=== PATIENT | male | born 1965 | race Caucasian/White ===

== ENCOUNTER 2021-10-10 13:52 | Outpatient (REF) | payer OTHER, SELFPAY ==
[2021-10-10 19:58] LABS: MANUAL DIFF FLAG NO
[2021-10-10 20:01] LABS: Basophils Absolute Auto 0.1 X10*3/uL (0.0-0.2); Basophils Percent Auto 1.1 % (0-2); Eosinophils Absolute Auto 0.3 X10*3/uL (0.0-0.4); Eosinophils Percent Auto 4.5 % (0-4); Hematocrit 42.7 % (42.0-52.0); Hemoglobin 14.7 g/dl (14.0-18.0); Imm Gran Abs Auto 0.02 X10*3/uL (0.00-0.03); Imm Gran Pct Auto 0.3 % (0.0-0.4); Lymphocytes Absolute Auto 1.4 X10*3/uL (1.2-4.9); Lymphocytes Percent Auto 21.7 % (20-40); Mean Corpuscular HGB Conc 34.4 g/dl (31.0-36.0); Mean Corpuscular Hemoglobin 31.3 pg (27.0-33.0); Mean Platelet Volume 11.2 fL (9.4-12.4); Monocytes Absolute Auto 0.9 X10*3/uL (0.1-1.2); Monocytes Percent Auto 13.6 % (2-11); Neutrophils Absolute Auto 3.8 x10*3/uL (2.0-8.3); Neutrophils Percent Auto 58.8 % (45-73); Platelet Count 207 X10*3/uL (160-400); Red Blood Count 4.69 X10*6/uL (4.60-5.80); Red Cell Distribution Width 13.2 % (11.0-16.0); White Blood Count 6.5 X10*3/uL (4.8-10.8)
[2021-10-10 20:24] LABS: Alanine Aminotransferase 20 U/L (0-40); Albumin Level 4.4 g/dL (3.5-5.0); Alkaline Phosphatase 58 U/L (39-117); Anion Gap 10 (12-20); Aspartate Amino Transferase 19 U/L (5-37); Bilirubin Total 0.4 mg/dL (0.0-1.0); Blood Urea Nitrogen 24 mg/dL (9-16); Calcium 9.2 mg/dL (8.4-10.2); Carbon Dioxide 28 mmol/L (22-29); Chloride 106 mmol/L (96-108); Cholesterol 213 mg/dL; Estimated Glomerular Filt Rate > 60; Glucose Random 97 mg/dL (60-115); HDL Cholesterol 87 mg/dL; LDL Cholesterol Calculated 111 mg/dl; Potassium 4.2 mmol/L (3.3-5.1); Sodium 140 mmol/L (135-145); Triglycerides 77 mg/dL
[2021-10-10 20:41] LABS: Prostate Specific Antigen 2.78 ng/mL (<0.05-4.0)
== END 2021-10-10 13:53 | disposition home or self-care (01) ==
LOC: HO.MANLDS 13:52
PROVIDERS: PCP Internal Medicine; Visit Provider Internal Medicine
DX: Z12.5 Encounter for screening for malignant neoplasm of prostate (principal); I45.6 Pre-excitation syndrome; N40.1 Benign prostatic hyperplasia with lower urinary tract symptoms
CPT/HCPCS: 36415; 80053; 80061; 84153; 85025

== ENCOUNTER 2024-04-11 06:53 | Outpatient (REF) | payer OTHER, SELFPAY ==
[2024-04-11 07:06] LABS: MANUAL DIFF FLAG NO
[2024-04-11 07:25] LABS: Basophils Percent Auto 0.8 % (0-2); Eosinophils Absolute Auto 0.4 X10*3/uL (0.0-0.4); Eosinophils Percent Auto 7.5 % (0-4); Hematocrit 48.5 % (42.0-52.0); Hemoglobin 16.5 g/dl (14.0-18.0); Imm Gran Abs Auto 0.01 X10*3/uL (0.00-0.03); Imm Gran Pct Auto 0.2 % (0.0-0.4); Lymphocytes Absolute Auto 1.4 X10*3/uL (1.2-4.9); Lymphocytes Percent Auto 27.6 % (20-40); Mean Corpuscular Hemoglobin 30.8 pg (27.0-33.0); Mean Corpuscular Volume 90.7 fL (80.0-98.0); Mean Platelet Volume 10.7 fL (9.4-12.4); Monocytes Absolute Auto 0.8 X10*3/uL (0.1-1.2); Monocytes Percent Auto 14.9 % (2-11); Neutrophils Absolute Auto 2.5 x10*3/uL (2.0-8.3); Platelet Count 203 X10*3/uL (160-400); Red Blood Count 5.35 X10*6/uL (4.60-5.80); Red Cell Distribution Width 13.1 % (11.0-16.0); White Blood Count 5.2 X10*3/uL (4.8-10.8)
[2024-04-11 07:35] LABS: Estimated Average Glucose 103 mg/dL; Hemoglobin A1C 143.2963 umol/L; Hemoglobin A1c % 5.2 % (<6.0); Total Hemoglobin (HGBA1C) 4310.8552 umol/L
[2024-04-11 07:45] LABS: Alanine Aminotransferase 20 U/L (0-40); Albumin Level 4.4 g/dL (3.5-5.0); Alkaline Phosphatase 69 U/L (39-117); Anion Gap 11 (12-20); Aspartate Amino Transferase 19 U/L (5-37); Bilirubin Total 0.5 mg/dL (0.0-1.0); Blood Urea Nitrogen 14 mg/dL (9-16); Calcium 9.4 mg/dL (8.4-10.2); Carbon Dioxide 29 mmol/L (22-29); Chloride 105 mmol/L (96-108); Cholesterol 230 mg/dL (<200); Estimated Glomerular Filt Rate > 60; Glucose Random 100 mg/dL (60-115); HDL Cholesterol 74 mg/dL (>40); LDL Cholesterol Calculated 125 mg/dL (<100); Potassium 4.4 mmol/L (3.3-5.1); Sodium 141 mmol/L (135-145); Total Protein 7.3 g/dL (6.5-8.0); Triglycerides 159 mg/dL (<150)
[2024-04-11 07:59] LABS: Prostate Specific Antigen 5.43 ng/mL (<0.05-4.0)
== END 2024-04-11 06:54 | disposition home or self-care (01) ==
LOC: HO.LAB 06:53
PROVIDERS: PCP Internal Medicine; Visit Provider Physician Assistant
DX: Z00.00 Encounter for general adult medical examination without abnormal findings (principal); Z13.1 Encounter for screening for diabetes mellitus; Z12.5 Encounter for screening for malignant neoplasm of prostate
CPT/HCPCS: 36415; 80053; 80061; 83036; 84153; 85025

== ENCOUNTER 2024-04-27 06:19 | Outpatient (REF) | payer OTHER, SELFPAY ==
[2024-04-27 06:38] LABS: MANUAL DIFF FLAG NO
[2024-04-27 07:27] LABS: Basophils Absolute Auto 0.1 X10*3/uL (0.0-0.2); Basophils Percent Auto 0.9 % (0-2); Eosinophils Absolute Auto 0.5 X10*3/uL (0.0-0.4); Eosinophils Percent Auto 8.2 % (0-4); Hemoglobin 15.6 g/dl (14.0-18.0); Imm Gran Abs Auto 0.01 X10*3/uL (0.00-0.03); Imm Gran Pct Auto 0.2 % (0.0-0.4); Lymphocytes Absolute Auto 1.4 X10*3/uL (1.2-4.9); Lymphocytes Percent Auto 25.2 % (20-40); Mean Corpuscular HGB Conc 34.7 g/dl (31.0-36.0); Mean Corpuscular Hemoglobin 30.7 pg (27.0-33.0); Mean Corpuscular Volume 88.6 fL (80.0-98.0); Mean Platelet Volume 10.7 fL (9.4-12.4); Monocytes Absolute Auto 0.8 X10*3/uL (0.1-1.2); Monocytes Percent Auto 15.1 % (2-11); Neutrophils Absolute Auto 2.8 x10*3/uL (2.0-8.3); Neutrophils Percent Auto 50.4 % (45-73); Platelet Count 209 X10*3/uL (160-400); Red Blood Count 5.08 X10*6/uL (4.60-5.80); White Blood Count 5.5 X10*3/uL (4.8-10.8)
[2024-04-27 07:41] LABS: Alanine Aminotransferase 16 U/L (0-40); Albumin Level 4.1 g/dL (3.5-5.0); Alkaline Phosphatase 68 U/L (39-117); Anion Gap 13 (12-20); Aspartate Amino Transferase 20 U/L (5-37); Bilirubin Total 0.5 mg/dL (0.0-1.0); Blood Urea Nitrogen 19 mg/dL (9-16); C Reactive Protein 0.15 mg/dL (< or = 0.50); Calcium 9.3 mg/dL (8.4-10.2); Carbon Dioxide 27 mmol/L (22-29); Chloride 106 mmol/L (96-108); Estimated Glomerular Filt Rate > 60; Glucose Random 104 mg/dL (60-115); Iron 78 mcg/dL (45-160); Lipase 29 U/L (8-78); Magnesium 2.1 mg/dL (1.6-2.6); Percent Iron Saturation 26 % (15-50); Potassium 4.4 mmol/L (3.3-5.1); Sodium 142 mmol/L (135-145); Total Iron Binding Capacity 300 mcg/dL (228-428); Total Protein 6.9 g/dL (6.5-8.0); Unsaturated Iron Binding 222 ug/dL
[2024-04-27 07:53] LABS: Amylase 77 U/L (28-100)
[2024-04-27 08:07] LABS: Ferritin 181 ng/mL (20-250); Free T4 (Free Thyroxine) 0.84 ng/dL (0.71-1.85); Thyroid Stimulating Hormone 1.49 uIU/mL (0.32-4.0)
[2024-04-27 08:19] LABS: Folate 9.5 ng/mL (> or = 4.0); Vitamin B12 522 pg/mL (200-900)
[2024-04-27 10:00] LABS: Erythrocyte Sedimentation Rate 1 MM/HR (0-15)
[2024-05-01 13:34] LABS: Zinc 77 mcg/dL (60-130)
--- OUTSIDE RECORDS SUMMARY | 2024-05-02 22:51 | XMS_ITS | Continuity of Care Document ---
Author Organization [facility] Address [address] [place] [address] Assessment No assessment recorded. Plan of Treatment Reminders Order Date Submit Date Provider Last Modified By Organization Details Last Modified Time Details Appointments ANNUAL EXAM 2024 04:00P M MAYCOL JONES Not available Not available Not available Lab CMP, serum or plasma 2023 [facility], [address] [place] [address], [id number], 04/12/2024 11:55:33 CBC w/ auto diff 2023 [facility], [address] [place] [address], [id number], 04/28/2024 11:33:32 lipid panel, blood 2023 [facility], [address] [place] [address], [id number], 02/25/2024 16:00:35 PSA, serum or plasma 2023 [facility], [address] [place] [address], [id number], 02/25/2024 16:00:35 hemoglobi n A1c, QN, blood 2023 [facility], [address] [place] [address], [id number], 02/25/2024 16:00:35 Referral None recorded. Procedures None recorded. Surgeries None recorded. Imaging None recorded. Medication Orders None recorded. Patient TargetsNo targets recorded. Patient InstructionsNo instructions recorded. Reason for Referral None Reported. Problems Name Problem SNOMED Code Status Onset Date Resolution Date Notes Provider Name and Address Organization Details Recorded Time Nahun inson-Whit e pattern 58834905 Active 2021 Not Available [facility] 3 11:44:39 Benign prostatic hyperplasi a with outflow obstructio n 772123310 Active 2021 Not Available [facility] 3 11:44:39 Bleeding internal hemorrhoid s 76522314 Active 2021 Not Available [facility] 3 11:44:39 Pain of bilateral knee joints 6228111338240 04 Active 2021 Not Available [facility] 3 11:44:39 Bilateral plantar fasciitis 3629204428326 9108 Active 2021 Not Available [facility] 3 11:44:39 Pain in right heel 7811990818085 105 Active 2021 Not Available [facility] 3 11:44:39 Supraventr icular tachycardi a 0752875 Active 2022 Not Available [facility] 3 11:44:39 Dyspnea 076077697 Active 2022 Not Available [facility] 3 11:44:39 Lipoma of skin 408357769 Active 2022 Not Available [facility] 3 11:44:39 Notes:failed ablation 2017 Problem Notes None recorded. Procedures Surgical History Date Name Laterality Status Provider Name and Address Organization Details Recorded Time 02/11/20 [facility] 09/[facility] 12:11:11 [facility]lect[facility] 09/23/2021 12:11:44 [facility] 09/23/2021 12:11:57 excision of lipoma completed [facility] 09/23/2021 12:12:10 Imaging Results None recorded. Procedure Notes None recorded. Medical Equipment None Reported. Allergies No known drug allergies Medications Name Sig Start Date Stop Date Status Note LastModified by Organization Details LastModified Time amoxicillin 500 mg capsule TAKE 1 CAPSULE BY MOUTH THREE TIMES A DAY 07/02 completed Not Available Not Available Not Available potassium chloride ER 10 mEq capsule,ext ended release TAKE 1 CAPSULE BY MOUTH DAILY FOR 5 DAYS ONLY WHILE TAKING FUROSEMID E 07/02 completed Not Available Not Available Not Available amiodarone 200 mg tablet TAKE 2 TABLETS BY MOUTH 2 TIMES A DAY FOR 6 DAYS, THEN TAKE 1 TABLET TWICE A DAY FOR 30 DAYS 07/02 completed Not Available Not Available Not Available hydrocodone 5 mg-acetamin ophen 325 mg tablet TAKE 1 TABLET BY MOUTH EVERY 6 HOURS NEEDED FOR PAIN 07/02 completed Not Available Not Available Not Available amoxicillin 500 mg tablet TAKE 4 TABLET BY MOUTH DIRECTED 1 HOUR PRIOR TO DENTAL APPOINTME NT 02/24 completed Not Available Not Available Not Available hydrocortis one 2.5 % topical cream with perineal applicator APPLY SPARINGLY TO AFFECTED AREA 2 TO 4 TIMES A DAY 07/02 completed Not Available Not Available Not Available tamsulosin 0.4 mg capsule TAKE 1 CAPSULE BY MOUTH EVERY DAY 07/02 completed Not Available Not Available Not Available furosemide 20 mg tablet TAKE 1 TABLET BY MOUTH TWICE A DAY FOR 5 DAYS 07/02 completed Not Available Not Available Not Available ibuprofen 600 mg tablet TAKE 1 TABLET BY MOUTH FOUR TIMES A DAY NEEDED FOR PAIN 07/02 completed Not Available Not Available Not Available albuterol sulfate HFA 90 mcg/actuati on aerosol inhaler INHALE 2 PUFFS EVERY 4 HOURS NEEDED FOR WHEEZING/ SHORTNESS OF BREATH 02/24 completed Not Available Not Available Not Available chlorhexidi ne gluconate 0.12 % mouthwash RINSE GENTLY WITH 1 CAPFUL TWICE A DAY THEN SPIT OUT 07/02 completed Not Available Not Available Not Available aspirin 1 tablet QD (81 mg) active Not Available Not Available No t Available Vitals Date Recorded Body height Body mass index (BMI) Body weight Heart rate Oxygen saturation Oxygen saturation in Arterial blood by Pulse oximetry Systolic blood pressure Diastolic blood pressure Provider Name and Address Organization Details Last Updated DateTime 4 177.8 cm 26.2 kg/m2 18674.9 7 g 65 /min 97 % 97 % 122 mm[Hg] 78 mm[Hg] Namita Zurita [facility] 15:46:33 Social History Question Answer Notes LastModified by Organizat ion Details LastModified Time Tobacco Smoking Status Former Smoker Angelica Soto robert [facility] 09/23/2021 12:12:22 What Was The Date Of Your Most Recent Tobacco Screening? 02/25/2024 [email or web address] Information not available 02/25/2024 Do You Or Have You Ever Used Any Other Forms Of Tobacco Or Nicotine? No [email or web address] Information not available 07/02/2022 Sex: Unknown Functional Status None recorded. Mental Status None recorded. Family History Nothing Reported. Medical History No medical history recorded. Immunizations Vaccine Type Date Status Provider Name and Address Organization Details Recorded Time COVID-19 vaccine, vector-nr, rS-Ad26, PF, 0.5 mL 02/14/2021 completed Not Available [facility] 09/22/2022 15:46:47 Tdap 10/22/2017 completed Delonte JONES [address] [place] [address], [phone], [facility] [place] [facility] 02/25/2024 15:55:19 Past Encounters Encounter ID Performer Location Encounter Start Date Encounter Closed Date Diagnosis/Indication Diagnosis SNOMED-CT Code Diagnosis ICD10 Code [id number] MAYCOL JONES [facility] [address] [place] [address],[place] [address] 02/25/2024 15:42:07 02/25/2024 16:07:47 Active or passive immunization 469222605 Z23 Adult heal th examination 817224393 Z00.00 Depression screening 171 452809 Z13.31 Health Concerns Section Related Observation LastModified by Organization Detai ls LastModified Time None Recorded Concern Status LastModified by Organization Details LastModified Time None Recorded Payers Encounter Date Sequence Insurance Name Policy Number Policy Briceno Covered Member ID Briceno Member ID Guarantor Name 02/25/2024 1 [employer] - [facility] PPO (PPO) [id number] Erich Regan [id number] Erich Regan Notes Date Note Type Note Provider Name and Address Organization Details Recorded Time 02/25/2024 text/html Annual WellnessReported bypatient.Diet and Nutrition:healthy diet; discussed vitamin and supplement use; discussed portion control; discussed maintaining calcium balance; discussed diet improvement Fracture Risk:no history of fractures; no recent explained fracture; no sudden unexplained fractures; no previous musculoskeletal injuries Physical Activity:exercises on a regular basis; recent increase in physical activity; good physical condition; discussed weightbearing activities; discussed exercise habits Additional Lifestyle Factors:no tobacco use; drinks alcohol (mild-moderate) Depression Risk:never feels sad, empty, or tearful; no loss of interest in activities; no significant changes in weight; no sleep disturbances or insomnia; no agitation; no loss of energy; no feelings of worthlessness or guilt; no thoughts of suicide; no history of depression; no history of mood disorders Hearing:no loss of hearing Vision:no vision problemsNotes:recent dentist appt last week > goes 4 times a yearhas fillings scheduled got CT scan for ongoing chest pain MAYCOL JONES [address] [place] [address], [phone], [facility] 02/25/2024 16:04:15
--- OUTSIDE RECORDS SUMMARY | 2024-05-02 22:51 | XMS_ITS | Data Portability ---
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) [place] MODERATE MUST MEET 2 OUT OF 3 ELEMENTS: PROBLEMS, DATA OR RISK ELEMENT 1: PROBLEMS ADDRESSED 1 OR MORE CHRONIC ILLNESS WITH EXACERBATION OR 2 OR MORE STABLE CHRONIC ILLNESSES OR 1 UNDIAGNOSED NEW PROBLEM OR 1 ACUTE ILLNESS W/SYMPTOMS OR 1 ACUTE COMPLICATED INJURY ELEMENT 2: DATA MUST MEET 1 OF 3 CATEGORIES CATEGORY 1: REVIEW OF PRIOR EXTERNAL NOTES, REVIEW OF RESULTS, ORDERING OF EACH TEST, ASSESSMENT REQUIRING INDEPENDENT HISTORIAN OR CATEGORY 2: INDEPENDENT INTERPRETATION OF TESTS BY ANOTHER PHYSICIAN OR SPECIALIST OR CATEGORY 3: DISCUSSION OF MGT OR TEST INTERPRETATION W/EXTERNAL PHYSICIAN OR SPECIALIST ELEMENT 3: RISK RISK OF COMPLICATIONS AND/OR MORBIDITY OR MORTALITY OF PATIENT MANAGEMENT PROVIDER MUST THOROUGHLY DOCUMENT EACH ELEMENT THAT IS COVERED Not available 09/24/2021 16:26:20 11/10/2021 11/10/2021 [id number] [place] [id number] (POURING CRANE OPERATOR) MDM MODERATE MUST MEET 2 OUT OF 3 ELEMENTS: PROBLEMS, DATA OR RISK ELEMENT 1: PROBLEMS ADDRESSED 1 OR MORE CHRONIC ILLNESS WITH EXACERBATION OR 2 OR MORE STABLE CHRONIC ILLNESSES OR 1 UNDIAGNOSED NEW PROBLEM OR 1 ACUTE ILLNESS W/SYMPTOMS OR 1 ACUTE COMPLICATED INJURY ELEMENT 2: DATA MUST MEET 1 OF 3 CATEGORIES CATEGORY 1: REVIEW OF PRIOR EXTERNAL NOTES, REVIEW OF RESULTS, ORDERING OF EACH TEST, ASSESSMENT REQUIRING INDEPENDENT HISTORIAN OR CATEGORY 2: INDEPENDENT INTERPRETATION OF TESTS BY ANOTHER PHYSICIAN OR SPECIALIST OR CATEGORY 3: DISCUSSION OF MGT OR TEST INTERPRETATION W/EXTERNAL PHYSICIAN OR SPECIALIST ELEMENT 3: RISK RISK OF COMPLICATIONS AND/OR MORBIDITY OR MORTALITY OF PATIENT MANAGEMENT PROVIDER MUST THOROUGHLY DOCUMENT EACH ELEMENT THAT IS COVERED Not available 11/10/2021 16:37:05 Plan of Treatment Reminders Order Date Submit Date Provider Last Modified By Organization Details Last Modified Time Details Appointments ANNUAL EXAM 2024 04:00P M MAYCOL JONES Not available Not available Not available Lab CMP, serum or plasma 2021 SELENE Not available 10/13/2021 11:21:36 CBC w/ auto diff 2021 SELENE Not available 10/13/2021 11:21:36 lipid panel, serum 2021 SELENE Not available 10/13/2021 11:21:36 PSA, serum or plasma 2021 [email or web address] Not available 09/24/2021 16:48:43 CMP, serum or plasma 2023 [facility], [address] [place] [address], [id number], 04/12/2024 11:55:33 CBC w/ auto diff 2023 024 [facility], [address] [place] [address], [address], 04/28/2024 11:33:32 lipid panel, blood 2023 024 [facility], [address] [place] [address], [address], 02/25/2024 16:00:35 PSA, serum or plasma 2023 024 [facility], [address] [place] [address], [address], 02/25/2024 16:00:35 hemoglobi n A1c, QN, blood 2023 024 [facility], [address] [place] [address], [address], 02/25/2024 16:00:35 Referral cardiolog ist referral 2021 022 [email or web address] 10 Erich Llanos MD, [address] [place], [address], 11/17/2021 11:54:17 general surgeon referral 2022 023 [email or web address] Rasheeda Myles MD, [address] [facility], [place], [address], 08/07/2022 10:46:52 Procedures None recorded. Surgeries None recorded. Imaging XR, knee, 3 view 2021 022 SELENE Not available 09/30/2021 15:12:50 XR, chest, 2 view 2022 023 [facility], [address] [place], [address], 08/07/2022 10:46:52 Medication Orders hydrocort isone 2.5 % topical cream with perineal applicato r 2021 022 [email or web address] [id number], [address] [place], [address], 07/02/2022 10:38:51 tamsulosi n 0.4 mg capsule 2021 022 [email or web address] [id number], [address] [place], [address], 07/02/2022 10:38:49 Patient TargetsNo targets recorded. 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 [email or web address] [facility] [address] [place] [address] Dr, [place], [id number], 11/10/2021 16:27:12 08/06/19 23 08/05/2022 XR, chest , 2 view No observ ation record ed. [email or web address] [facility] [address] [place], [id number], 08/07/2022 09:49:26 Result Notes None recorded. Problems Name Problem SNOMED Code Status Onset Date Resolution Date Notes Provider Name and Address Organization Details Recorded Time Nahun inson-Whit e pattern 69246597 Active 2021 Not Available [facility] 3 11:44:39 Benign prostatic hyperplasi a with outflow obstructio n 520030451 Active 2021 Not Available [facility] 3 11:44:39 Bleeding internal hemorrhoid s 35549818 Active 2021 Not Available [facility] 3 11:44:39 Pain of bilateral knee joints 0714720830433 04 Active 2021 Not Available [facility] 3 11:44:39 Bilateral plantar fasciitis 8660732105427 9108 Active 2021 Not Available [facility] 3 11:44:39 Pain in right heel 1400270913678 105 Active 2021 Not Available [facility] 3 11:44:39 Supraventr icular tachycardi a 1938996 Active 2022 Not Available [facility] 3 11:44:39 Dyspnea 232970560 Active 2022 Not Available [facility] 11:44:39 Lipoma of skin 483013271 Active 2022 Not Available [facility] 11:44:39 Notes:failed ablation 2016 Problem Notes None recorded. Procedures Surgical History Date Name Laterality Status Provider Name and Address Organization Details Recorded Time 02/11/20 18 Colonoscopy completed [facility] 09/23/2021 12:11:11 tonsillectomy completed [facility] 09/23/2021 12:11:44 hernia repair completed [facility] 09/23/2021 12:11:57 excision of lipoma completed [facility] 09/23/2021 12:12:10 Imaging Results Imaging Date Name Status LastModified by Organiz ation Details LastModified Time 09/30/2021 XR, knee, 3 view completed [email or web address] [facility] [address] [place] [address] , [facility], [id number], 11/10/2021 16:27:12 08/05/2022 XR, chest, 2 view completed [email or web address] [facility] [address] [place], [id number], 08/07/2022 09:49:26 Procedure Notes None recorded. Medical Equipment None [...] No t Available Vitals Date Recorded Body weight Body mass index (BMI) Body height Heart rate Oxygen saturation Oxygen saturation in Arterial blood by Pulse oximetry Systolic blood pressure Diastolic blood pressure Provider Name and Address Organization Details Last Updated DateTime 2 34927.6 6 g 25.1 kg/m2 177.8 cm 76 /min 98 % 98 % 160 mm[Hg] 84 mm[Hg] Taz DesireeCampbell McknightderekDO [address] [place], [address] [place] [address] Internal [facility] 2 16:02:36 Date Recorded Body height Body mass index (BMI) Body weight Heart rate Oxygen saturation Oxygen saturation in Arterial blood by Pulse oximetry Systolic blood pressure Diastolic blood pressure Provider Name and Address Organization Details Last Updated DateTime 3 177.8 cm 24.7 kg/m2 19413.8 9 g 84 /min 97 % 97 % 126 mm[Hg] 70 mm[Hg] MAYCOL JONES [address] [facility],[place], [address] [place] [address] Internal [facility] 3 10:32:29 Date Recorded Body height Oxygen saturation Oxygen saturation in Arterial blood by Pulse oximetry Heart rate Systolic blood pressure Diastolic blood pressure Provider Name and Address Organization Details Last Updated DateTime 3 177.8 cm 97 % 97 % 80 /min 140 mm[Hg] 80 mm[Hg] Loulou Ibrahima [facility] 3 09:50:56 Date Recorded Body height Body mass index (BMI) Body weight Heart rate Oxygen saturation Oxygen saturation in Arterial blood by Pulse oximetry Systolic blood pressure Diastolic blood pressure Provider Name and Address Organization Details Last Updated DateTime 4 177.8 cm 26.2 kg/m2 16369.9 7 g 65 /min 97 % 97 % 122 mm[Hg] 78 mm[Hg] Namita Zurita [facility] 4 15:46:33 Social History Question Answer Notes LastModified by Organizat ion Details LastModified Time Tobacco Smoking Status Former Smoker Angelica jones [facility] 09/23/2021 12:12:22 What Was The Date Of [...] PF, 0.5 mL 02/14/2021 completed Not Available [facility] 09/22/2022 15:46:47 Tdap 10/22/2017 completed Delonte JONES [address] [facility],[place], [address], [facility] 02/25/2024 15:55:19 Past Encounters Encounter ID Performer Location Encounter Start Date Encounter Closed Date Diagnosis/Indication Diagnosis SNOMED-CT Code Diagnosis ICD10 Code [id number] Taz Gonzales [facility] [address] [facility] [address] 09/24/2021 15:54:26 09/24/2021 16:53:38 Vlezb-Qcbxtdkrn-Cghez pattern 82592811 I45.6 Benign pro static hyperplasia with outflow obstruction 611478473 N40.1 Bleeding i nternal hemorrhoids 64418098 K64.8 Pain of bi lateral knee joints 8521137509 29396 M25.561 M25.562 Bilateral plantar fasciitis 8580266850 6359926 M72.2 [id number] Taz Gonzales DO [facility] [address] [place] [phone] 11/10/2021 12:10:26 11/14/2021 08:09:20 Benign prostatic hyperplasia with outflow obstruction 007782928 N40.1 Bleeding i nternal hemorrhoids 88707766 K64.8 Pain of bi lateral knee joints 1001884547 41326 M25.561 M25.562 Demond-Park inson-White pattern 62799454 I45.6 Bilateral plantar fasciitis 0860471395 1017693 M72.2 [id number] SHANNON SCOTT [facility] [address] [place] [phone] 07/02/2022 10:27:45 07/02/2022 11:59:13 Supraventricular tachycardia 5411709 I47.1 History of repair of mitral valve 643563497 Z98.890 History of radiofrequency ablation operation for arrhythmia 237702740 Z98.890 Demond-Park inson-White pattern 59569329 I45.6 [id number] MAYCOL JONES [facility] [address] [place] [phone] 08/05/2022 09:44:10 08/07/2022 10:46:51 Dyspnea 501214585 R06.02 Lipoma of skin 429024104 D17.1 [id number] MAYCOL JONES [facility] [address] [place] [phone] 02/25/2024 15:42:07 02/25/2024 16:07:47 Active or passive immunization 324833099 Z23 Adult heal th examination 093730841 Z00.00 Depression screening 171 564345 Z13.31 Health Concerns Section Related Observation LastModified by Organization Detai ls LastModified Time None Recorded Concern Status LastModified by Organization Details LastModified Time None Recorded Advance Directives Directive None Recorded Payers Encounter Date Sequence Insurance Name Policy Number Policy Briceno Covered Member ID Briceno Member ID Guarantor Name 09/24/2021 1 [employer] Erich Fragoso [id number] Erich Fragoso 11/10/2021 1 [employer] Erich Fragoso [id number] Erich 07/02/2022 1 [employer] Erich Days [id number] Erich 07/02/2022 1 [employer] PPO (PPO) [id number] Erich Fragoso [id number] Erich Fragoso 08/05/2022 1 [employer] [facility] PPO (PPO) [id number] Erich Fragoso [id number] Erich 02/25/2024 1 [employer] [facility] PPO (PPO) [id number] Erich Fragoso [id number] Erich Fragoso Notes Date Note Type Note Provider Name and Address Organization Details Recorded Time 2 text/html here for rechk relates that his WPW has been acitng outhis bp at home are in 120-120 systolrelates he has felt the occ palpitationsrelates that he has been having runs of recurrent episodeslong discussion re tx of WPW and how this is coming in uncommon waves of a couple seconds episodes can be gone for months and return for a few episodes that disappear after 30 sec and then be gone again for months also has been having some rectal bleed with bmalso knees are pretty sore over the last several years finds it diff to ambulate or if sitting for a while he is quite uncomfortable and also has been having trouble with bialt foot painstates despite new boots or ainsoles and isnerts pain has retut=rned and is severe at times Taz Gonzales, [address] [place], [address], [facility] 09/24/2021 16:48:00 3 text/html hospital fu patient presented to ER following mitral valve repair with lightheadedness and irregular heart rateEKG revealed a narrow complex tachycardia, concern for SVTsuggested adenosine and vagal maneuvers, family opted out of the adenosine, would like to discuss with his cardiologistimaging clear, no PE on CTwas on amiodarone, which was d/c in concern for possible reaction, an ablation was scheduled (06/30/[address] Rodríguez)d/c beta arian today:no consult information from cardiowill need assess with patient what med changes were made the patient is still having HR elevations from 120 the patient reports that he was in complete heart block which resulted in a fu with hospital and futhe patient reports that the delta wave is gonethe patient reports that they are concerned about the communication AV node and SA node so they are considering a pacemaker they d/c fully with amiodarone and his metoprolol the patient's HR today has been between 75 to 92denies chest pain, denies lightedness MAYCOL JONES [address] [place], [address], [facility] 07/02/2022 10:46:05 3 text/html c/o lipoma the patient has a fu with echo from cardio in September 21 but no established fu (had open heart surgery)is having a pain in his chest, right side of his incision linepossible wire out of place? states it feels like he is being poked and causes the sob (can't expand all the way) have them also call cardio anyways for a fu just to have everything checked out for the lipoma will set up with Dr. Myles's office (as they have removed them from him in the past) no other questions todayhis was with him at his apptboth stated their understanding MAYCOL JONES [address] [place], [address], [facility] 08/05/2022 10:12:30 4 text/html Annual WellnessReported bypatient.Diet and Nutrition:healthy diet; [...] scan for ongoing chest pain MAYCOL JONES [address] [place] [address], [phone], [facility] 02/25/2024 16:04:15
--- OUTSIDE RECORDS SUMMARY | 2024-05-02 22:51 | XMS_ITS | Continuity of Care Document ---
Author Organization [facility] Address [address] [place] [address]- Care Team Providers Care Intelligence Chief Name Role Phone Taz Gonzales DO Primary Care Physician Encounter [facility] Date(s): 03/22/24 - 04/21/24 [facility] [address] [place] [address]- Encounter Type: Triage Allergies, Adverse Reactions, Alerts No Known Medication Allergies Immunizations Given and Recorded Vaccine Date Status Refusal Reason SARS-CoV-2 (COVID-19) Ad26 vaccine 02/14/21 Record ed Medications aspirin 81 mg oral delayed release tablet 81 mg, 1, tablet, By Mouth, Daily, Refills 0, Maintenance, 06/04/22 8:03:00 AM EST, Partial fill upon patient request if the prescription is for a schedule II opioid drug. Start Date: 06/04/22 Status: Ordered Repeat number: 1 Problem List Condition Confirmation Course Effective Dates Status Health St atus Informant Shortness of breath Confirmed Active History of mitral valve prolapse Confirmed Active Wivge-Ccjiphtji-Ca ite (WPW) syndrome Confirmed Active Social History Social History Type Response Smoking Status Former smoker, quit more than 30 days ago entered on: 06/30/22 Sex Sex Representation Male (finding) Patient Care team information Care Team Personnel Name: Taz Gonzales DO Position: Reference Physician Member Role: PCP Address: [address] [place] [address] [place] [address]- [place] [employer]: Name: Taisha Glass RN Position: S RN Member Role: Primary Care Nurse Name: Desirae Ashley RN Position: S RN Member Role: Primary Care Nurse Name: Yumiko Guzman RN Position: S RN Supv Member Role: Primary Care Nurse Care Team Related Persons Name: KISHOR BURTON Name: MARIAM REYEZ Insurance Providers Guarantor name: RAMAN BURTON [facility] Plan Information #: 1 Payer: NANCY NAVARRO Member Number: NA Policy Number: NA Group Number: NA
== END 2024-04-27 06:20 | disposition home or self-care (01) ==
LOC: HO.LAB 06:19
PROVIDERS: PCP Internal Medicine; Visit Provider Physician Assistant
DX: R63.4 Abnormal weight loss (principal)
CPT/HCPCS: 36415; 80053; 82150; 82607; 82728; 82746; 83540; 83690; 83735; 84439; 84443; 84630; 85025; 85652; 86140

== ENCOUNTER 2024-05-27 07:09 | Outpatient (REF) | payer OTHER, SELFPAY ==
[2024-05-27 08:14] LABS: Prostate Specific Antigen 5.31 ng/mL (<0.05-4.0)
== END 2024-05-27 07:10 | disposition home or self-care (01) ==
LOC: HO.LAB 07:09
PROVIDERS: PCP Internal Medicine; Visit Provider Physician Assistant
DX: N13.8 Other obstructive and reflux uropathy (principal); Z12.5 Encounter for screening for malignant neoplasm of prostate
CPT/HCPCS: 36415; 84153

== ENCOUNTER 2024-07-03 16:16 | Outpatient (REF) | payer OTHER, SELFPAY ==
--- OUTSIDE RECORDS SUMMARY | 2024-07-03 16:38 | XMS_ITS | Data Portability ---
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 SENSOR SPECIALIST) [facility] MODERATE MUST MEET 2 OUT OF 3 [...] Time Details Appointments ANNUAL EXAM 2024 04:00P MAYCOL HOYT Not available Not available Not available Lab CMP, serum or plasma 2021 SELENE Not available 10/13/2021 11:21:36 CBC w/ auto diff 2021 SELENE Not available 10/13/2021 11:21:36 lipid panel, serum 2021 SELENE Not available 10/13/2021 11:21:36 PSA, serum or plasma 2021 [email or web address] Not available 09/24/2021 16:48:43 CMP, serum or plasma 2023 [facility], [address] [place] [address], [id number], 04/12/2024 11:55:33 CBC w/ auto diff 2023 024 [facility], [address] [place] [address], [address], 04/28/2024 11:33:32 lipid panel, blood 2023 [facility], [address] [place] [address], [id number], 02/25/2024 16:00:35 PSA, serum or plasma 2023 024 [facility], [address] [place] [address], [address], 05/29/2024 11:42:55 hemoglobi n A1c, QN, blood 2023 024 [facility], [address] [place] [address], [id number], 02/25/2024 16:00:35 Referral cardiolog ist referral 2021 022 [email or web address] 10 Erich Llanos MD, [address] [place], [address], 11/17/2021 11:54:17 general surgeon referral 2022 023 [email or web address] Rasheeda Myles MD, [address] [place], [address], 08/07/2022 10:46:52 Procedures None recorded. Surgeries None recorded. Imaging XR, knee, 3 view 2021 022 SELENE Not available 09/30/2021 15:12:50 XR, chest, 2 view 2022 023 [email or web address] [facility], [address] [place], [address], 08/07/2022 10:46:52 Medication Orders hydrocort isone 2.5 % topical cream with perineal applicato r 2021 022 [email or web address] [id number], [address] [place], [address], 07/02/2022 10:38:51 tamsulosi n 0.4 mg capsule 2021 022 [email or web address] [id number], [address] [place], [address], 07/02/2022 10:38:49 Patient TargetsNo targets recorded. 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 [email or web address] [facility] [address] [place] [address] Dr, [place], [address], 11/10/2021 16:27:12 08/06/19 23 08/05/2022 XR, chest , 2 view No observ ation record ed. [email or web address] [facility] [address] [place], [address], 08/07/2022 09:49:26 Result Notes None recorded. Problems Name Problem SNOMED Code Status Onset Date Resolution Date Notes Provider Name and Address Organization Details Recorded Time Nahun chaparroon-Whit e pattern 52704445 Active 2021 Not Available [facility] 3 11:44:39 Benign prostatic hyperplasi a with outflow obstructio n 748472817 Active 2021 Not Available [facility] 3 11:44:39 Bleeding internal hemorrhoid s 39981685 Active 2021 Not Available [facility] 3 11:44:39 Pain of bilateral knee joints 3003598494357 04 Active 2021 Not Available [facility] 3 11:44:39 Bilateral plantar fasciitis 6276621637245 9108 Active 2021 Not Available [facility] 3 11:44:39 Pain in right heel 7658834317052 105 Active 2021 Not Available [facility] 3 11:44:39 Supraventr icular tachycardi a 9985751 Active 2022 Not Available [facility] 3 11:44:39 Dyspnea 535132042 Active 2022 Not Available [facility] 11:44:39 Lipoma of skin 515639687 Active 2022 Not Available [facility] 11:44:39 Notes:failed ablation 2016 Problem Notes None recorded. Procedures Surgical History Date Name Laterality Status Provider Name and Address Organization Details Recorded Time 02/11/20 Colonoscopy completed [facility] 09/23/2021 12:11:11 tonsillectomy completed [facility] 09/23/2021 12:11:44 hernia repair completed [facility] 09/23/2021 12:11:57 excision of lipoma completed [facility] 09/23/2021 12:12:10 Imaging Results Imaging Date Name Status LastModified by Organiz ation Details LastModified Time 09/30/2021 XR, knee, 3 view completed [email or web address] [facility] [address] [place] [address] , [place], [address], 11/10/2021 16:27:12 08/05/2022 XR, chest, 2 view completed [email or web address] [facility] [address] [place], [address], 08/07/2022 09:49:26 Procedure Notes None recorded. Medical [...] 1 HOUR PRIOR TO DENTAL APPOINTME NT 10/04 /2024 completed Not Available Not Available Not Available [...] Address Organization Details Last Updated DateTime 2 55171.6 6 g 25.1 kg/m2 177.8 cm 76 /min 98 % 98 % 160 mm[Hg] 84 mm[Hg] Taz Gonzales DO [address] [place], [address], [facility] 2 16:02:36 Date Recorded Body height Body mass index (BMI) Body weight Heart rate Oxygen saturation Oxygen saturation in Arterial blood by Pulse oximetry Systolic blood pressure Diastolic blood pressure Provider Name and Address Organization Details Last Updated DateTime 3 177.8 cm 24.7 kg/m2 14706.8 9 g 84 /min 97 % 97 % 126 mm[Hg] 70 mm[Hg] MAYCOL JONES [address] [place], [address], [facility] 3 10:32:29 Date Recorded Body height Oxygen saturation Oxygen saturation in Arterial blood by Pulse oximetry Heart rate Systolic blood pressure Diastolic blood pressure Provider Name and Address Organization Details Last Updated DateTime 3 177.8 cm 97 % 97 % 80 /min 140 mm[Hg] 80 mm[Hg] Loulou Alexandra [facility] 3 09:50:56 Date Recorded Body height Body mass index (BMI) Body weight Heart rate Oxygen saturation Oxygen saturation in Arterial blood by Pulse oximetry Systolic blood pressure Diastolic blood pressure Provider Name and Address Organization Details Last Updated DateTime 4 177.8 cm 26.2 kg/m2 12573.9 7 g 65 /min 97 % 97 % 122 mm[Hg] 78 mm[Hg] Namita Parminder [facility] 4 15:46:33 Social History Question Answer Notes LastModified by Organizat ion Details LastModified Time Tobacco Smoking Status Former Smoker Angelica jones [facility] 09/23/2021 12:12:22 What Was The Date [...] history recorded. Immunizations Vaccine Type Date Status Note Provider Nam e and Address Organization Details Recorded Time COVID-19 vaccine, vector-nr, rS-Ad26, PF, 0.5 mL 02/14/2021 completed Not Available [facility] 3 15:46:47 Tdap 10/22/2017 completed MAYCOL JONES [address] [place] [address], [address], [facility] 02/25/2024 15:55:19 Past Encounters Encounter ID Performer Location Encounter Start Date Encounter Closed Date Diagnosis/Indication Diagnosis SNOMED-CT Code Diagnosis ICD10 Code Diagnosis Note [id number] Taz Gonzales DO [facility] [address] [facility],[place] [address] 09/24/2021 15:54:26 09/24/2021 16:53:38 Fmpwz-Jwkihnyog-Uejuc pattern 54432577 I45.6 he is currently stable and not having any issue he understand s that if the episodes increase in frequency then he will have to discuss ablation again Benign pro static hyperplasia with outflow obstruction 688187335 N40.1 Bleeding i nternal hemorrhoids 37388172 K64.8 has occured on occ over the past 2 weeksbrbpr with a bm ea time no maroon color had colonoscop y 3- 4 yr ago was neg Pain of bi lateral knee joints 5066301595 41048 M25.561 M25.562 see prior note Bilateral plantar fasciitis 6491901551 1583595 M72.2 needs an insert [id number] Taz Goznales DO [facility] [address] 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, [place] [address] 08/05/2022 09:44:10 08/07/2022 10:46:51 Dyspnea 560136578 R06.02 will set up with XR and will need to make a f/u with cardFransisco. Milagro (will fax results to their office) needs fu though Lipoma of skin 970590119 D17.1 will set up with gen surg referral [id number] MAYCOL JONES Internal Medicine [address] [facility],[place] [address] 02/25/2024 15:42:07 02/25/2024 16:07:47 Active or passive immunization 892709501 Z23 up to date Adult heal th examination 896806015 Z00.00 BP is excellent Depression screening 171 512967 Z13.31 SCREENING NEGATIVE Health Concerns Section Related Observation LastModified by Organization Detai ls LastModified Time None Recorded Concern Status LastModified by Organization Details LastModified Time None Recorded Advance Directives Directive None Recorded Payers Encounter Date Sequence Insurance Name Policy Number Policy Briceno Covered Member ID Briceno Member ID Guarantor Name 09/24/2021 1 [facility] Erich Fragoso [id number] Erich Regan 11/10/2021 1 [facility] Erich Richmond [id number] Erich Fragoso 07/02/2022 1 [facility] Erich Richmond [id number] Erich Fragoso 07/02/2022 1 [employer] [facility] PPO (PPO) [id number] Erich Regan [id number] Erich Regan 08/05/2022 1 [employer] [facility] PPO (PPO) [id number] Erich Regan [id number] Erich Regan 02/25/2024 1 [employer] [facility] PPO (PPO) [id number] Erich Fragoso [id number] Erich Regan Notes Date Note Type Note [...] retut=rned and is severe at times Taz Gonzales DO [address] [place], [address], [facility] 09/24/2021 16:48:00 3 text/html hospital [...] 92denies chest pain, denies lightedness MAYCOL JONES [address] [place], [address], [facility] 07/02/2022 10:46:05 3 text/html c/o [...] his apptboth stated their understanding MAYCOL JONES [address] [place], [address], [facility] 08/05/2022 10:12:30 text/html Annual WellnessReported bypatient.Diet and Nutrition:healthy diet; [...] scan for ongoing chest pain MAYCOL JONES [address] [facility], [place], [address], [facility] 02/25/2024 16:04:15
[2024-07-04 13:08] LABS: Free Prostate Spec Ag 0.4 ng/mL; Percent Free Prostate Spec Ag 7 % (calc) (>25); Prostate Specific Ag Total 5.7 ng/mL (< OR = 4.0)
== END 2024-07-03 16:17 | disposition home or self-care (01) ==
LOC: HO.LAB 16:16
PROVIDERS: PCP Internal Medicine; Visit Provider Physician Assistant
DX: N13.8 Other obstructive and reflux uropathy (principal)
CPT/HCPCS: 36415; 84154